=== PATIENT | female | born 1995 | race African-American/Black ===

== ENCOUNTER 2021-05-19 13:10 | Emergency (ER) | payer SELFPAY ==
[~2021-05-19] VITALS: Ht 160 cm; Wt 62.0 kg
[2021-05-19] MEDS ORDERED: ALBU6.7H9 IH (13:32)
[2021-05-19] MEDS ORDERED: CEPH500T MT (18:14)
[2021-05-19 18:49] VITALS: BP 121/74
== END 2021-05-19 18:50 | disposition home or self-care (01) ==
LOC: ER 13:10
DX: S61.012A Laceration without foreign body of left thumb without damage to nail, initial encounter (principal); W45.8XXA Other foreign body or object entering through skin, initial encounter; Y93.89 Activity, other specified; Y92.89 Other specified places as the place of occurrence of the external cause; Y99.8 Other external cause status
CPT/HCPCS: 12001; 73130; 99283